=== PATIENT | male | born 1995 | race Caucasian/White ===

== ENCOUNTER 2016-11-05 11:19 | Emergency (ER) | payer OTHER ==
[~2016-11-05 11:19] MED LIST: BACTRIM DS TABL1 TA1 PO; BACTROBAN22 GM TOP; CLEOCIN PO; KEFLEX500 MG PO; NAPROXEN PO; NO MEDICATIONS; PEN-VEE K PO; VICODIN 5/1 TAB 5/50 PO; VOLTAREN75 MG PO
== END 2016-11-05 12:50 | disposition home or self-care (01) ==
LOC: CED 11:19
DX: R10.13 Epigastric pain (principal); R11.2 Nausea with vomiting, unspecified; G40.909 Epilepsy, unspecified, not intractable, without status epilepticus; K76.9 Liver disease, unspecified; F17.200 Nicotine dependence, unspecified, uncomplicated; Z79.899 Other long term (current) drug therapy
CPT/HCPCS: 99284